=== PATIENT | male | born 1955 | race Hispanic/Latino ===

== ENCOUNTER → 2018-10-24 | Outpatient (CLI) | payer OTHER | END | disposition home or self-care (01) | LOC: SHCH 12:32 | PROVIDERS: ATTEND Internal Medicine Cardiovascular Disease | DX: I11.9 Hypertensive heart disease without heart failure (principal); I35.8 Other nonrheumatic aortic valve disorders | CPT/HCPCS: 93306 ==

== ENCOUNTER → 2019-01-28 | Outpatient (CLI) | payer OTHER ==
[~2019-01-28] MED LIST: ASPI-1181 PO; ATOR10TA69 PO; FURO20TA4 PO; SPIR25TA6 PO; TRAM50TA4 PO; VITAMIN B1 PO
[2019-01-28 17:38] LABS: AMYLASE,BODY FLUID 32 U/L
[2019-01-28 18:20] LABS: SPECIMENTYPE,BODY FLUID PLEURAL
[2019-01-28 18:21] LABS: APPEARANCE BODY FLUID SLIGHTLY CLOUDY (CLEAR); COLOR,BODY FLUID YELLOW (LT YELLOW); TOTAL VOLUME,BODY FLUID 1000 mL
[2019-01-28 18:22] LABS: BODY FLUID WBC 21 /cu. mm.
[2019-01-28 18:23] LABS: BODY FLUID RBC 585 /cu. mm.
[2019-01-28 19:39] LABS: BF LYMPHOCYTE 69 %; BF MONOCYTE 9 %
== END | disposition home or self-care (01) ==
LOC: LAB 15:14
PROVIDERS: ATTEND Internal Medicine Critical Care Medicine
DX: J90 Pleural effusion, not elsewhere classified (principal)
CPT/HCPCS: 82150; 82945; 83615; 84157; 87071; 87116; 87205; 87206; 89051

== ENCOUNTER 2019-03-03 08:29 | Day surgery (SDC) | payer OTHER ==
--- NOTE | 2019-03-03 08:50 | NUR ---
PT CAME C/O OF LEAKAGE TO THE END OF THE TUBE/CAP. SUSHMA BOSWELL FROM [employer] CAME TO EVALUATE THE SITE, CONFIRMED THE LEAKAGE WAS COMING FORM THE CAP AND NO THE SITE.
[2019-03-03 08:57] LABS: BASOPHILS % (AUTO) 1.3 % (0.0-5.0); EOSINOPHILS % (AUTO) 3.2 % (0.0-8.0); HEMATOCRIT 42.6 % (42-54); LYMPHOCYTES % (AUTO) 21.4 % (21.0-51.0); MEAN CORPUSCULAR HEMOGLOBIN 34.5 pg (27.0-33.0); MEAN CORPUSCULAR HGB CONC 34.3 g/dL (32.0-36.0); MEAN CORPUSCULAR VOLUME 100.7 fL (79-99); MONOCYTES % (AUTO) 8.1 % (3.0-13.0); PLATELET COUNT (AUTO) 318 K/uL (130-400); RED BLOOD CELL COUNT(AUTO) 4.23 MIL/uL (4.50-6.20); RED CELL DISTRIBUTION WIDTH 14.9 % (11.0-15.5); WHITE BLOOD COUNT (AUTO) 5.5 K/uL (4.8-10.8)
--- NOTE | 2019-03-03 09:10 | NUR ---
SUSHMA BOSWELL FROM [employer] CAME BACK REPLACE THE CAP, NO LEAKAGE WAS NOTICE. MIRTHA RN STATE WAS ABLE TO D/C PT.
[2019-03-03 09:23] LABS: INR 1.03 (0.85-1.15); PARTIAL THROMBOPLASTIN TIME 26.7 SEC (26.3-35.5); PROTHROMBIN TIME 10.8 SEC (9.6-11.6)
--- NOTE | 2019-03-03 09:52 | NUR ---
Rt pleural catheter assessed for leaking. IR Dr Mejía notified. Existing leaking hub replaced with new hub. No further leaking. Report given to primary nurse Azeb BOSWELL
--- NOTE | 2019-03-03 10:10 | NUR ---
PT D/C NO COMPLICATION VIA WHEELCHAIR WITH SPOUSE. D/C INSTRUCTION GIVEN TO PT.
[2019-03-17] MEDS ORDERED: VITA1CAP PO (10:47)
[2019-03-17] MEDS ORDERED: MIDO10TA PO (10:47)
[2019-03-17] MEDS ORDERED: FURO20TA4 PO (10:47)
[2019-03-17] MEDS ORDERED: FLUT1AER IH (10:47)
[2019-03-17] MEDS ORDERED: CEFU250T87 PO (10:47)
== END 2019-03-03 10:10 | disposition home or self-care (01) ==
LOC: CLH 08:29 → DAH 08:29 → CLH 10:10
PROVIDERS: ATTEND Thoracic Surgery (Cardiothoracic Vascular Surgery)
DX: T81.9XXA Unspecified complication of procedure, initial encounter (principal); I10 Essential (primary) hypertension; E78.5 Hyperlipidemia, unspecified; F10.21 Alcohol dependence, in remission; I42.8 Other cardiomyopathies; Z79.82 Long term (current) use of aspirin; Z79.899 Other long term (current) drug therapy; Z98.890 Other specified postprocedural states; Z87.891 Personal history of nicotine dependence
CPT/HCPCS: 36415; 85025; 85610; 85730; A4663; A7048

== ENCOUNTER → 2019-03-17 | Outpatient (CLI) | payer OTHER ==
[~2019-03-17] VITALS: Ht 166.4 cm; Wt 59.5 kg
[~2019-03-17] MED LIST changes: +CEFU250T87 PO; +FLUT1AER IH; +MIDO10TA PO; +SODIUM CHLORIDE 0.9% 1000ML 1,000 ML IV SCH; +VITA1CAP PO
[2019-03-17 09:45] LABS: BASOPHILS % (AUTO) 0.9 % (0.0-5.0); EOSINOPHILS % (AUTO) 3.5 % (0.0-8.0); HEMATOCRIT 40.9 % (42-54); LYMPHOCYTES % (AUTO) 16.1 % (21.0-51.0); MEAN CORPUSCULAR HEMOGLOBIN 34.1 pg (27.0-33.0); MEAN CORPUSCULAR HGB CONC 33.9 g/dL (32.0-36.0); MEAN CORPUSCULAR VOLUME 100.6 fL (79-99); MONOCYTES % (AUTO) 7.7 % (3.0-13.0); NEUTROPHILS % (AUTO) 71.8 % (40.0-77.0); NUCLEATED RED BLOOD CELLS 0.2 % (0.0-0.19); PLATELET COUNT (AUTO) 318 K/uL (130-400); RED BLOOD CELL COUNT(AUTO) 4.06 MIL/uL (4.50-6.20); RED CELL DISTRIBUTION WIDTH 14.5 % (11.0-15.5); WHITE BLOOD COUNT (AUTO) 5.8 K/uL (4.8-10.8)
[2019-03-17 09:52] LABS: CREATININE 0.8 mg/dL (0.5-1.5); POTASSIUM 4.4 mmol/L (3.5-5.1)
[2019-03-17 10:02] VITALS: BP 79/62
[2019-03-17 10:04] VITALS: BP 88/64
[2019-03-17 10:15] LABS: INR 1.09 (0.85-1.15); PARTIAL THROMBOPLASTIN TIME 27.8 SEC (26.3-35.5); PROTHROMBIN TIME 11.4 SEC (9.6-11.6)
--- NOTE | 2019-03-17 10:21 | NUR ---
SAW MD CHILD FOR COUGH, GOT ANTIBIOTICS.
[2019-03-17 10:25] LABS: APPEARANCE,URINE Clear (CLEAR); BILIRUBIN,URINE Small (NEGATIVE); COLOR,URINE Dark Yellow (YELLOW); GLUCOSE, URINE (UA) Negative (NEGATIVE); KETONES,URINE Trace mg/dL (NEGATIVE); LEUKOCYTE ESTERASE ,URINE Trace (NEGATIVE); NITRATE,URINE Negative (NEGATIVE); OCCULT BLOOD,URINE Negative (NEGATIVE); PROTEIN,URINE POS 2+ mg/dL (NEGATIVE)
[2019-03-17 10:34] LABS: BACTERIA,URINE Rare /HPF (None Seen); RBC,URINE 0-1 /HPF (0-1); SQUAMOUS EPITHELIAL CELL,UR Rare /HPF (0-2); WBC,URINE 0-1 /HPF (0-1)
--- NOTE | 2019-03-19 11:19 | NUR ---
PROCEDURE RESCHEDULED CALLED OFFICE FOR CLARIFICATION, SPOKE TO NETTIE. PER NETTIE, PT WILL BE RESCHEDULED FOR 03/27/19. ALSO CALLED ROSITA BOWDEN AND REPORTED CHEST X RAY RESULT. PER RAMIRO, HE HAD ALREADY SEEN PT'S CHEST X RAY RESULT, NO ORDERS GIVEN, CONFIRMED PT IS RESCHEDULED FOR 03/27/19, NO NEED TO REDRAW LABS, NO NEED TO RETAKE CXR.
== END ==
LOC: DAH 10:00 → EDSTATUS 03-19 08:00
PROVIDERS: ATTEND Internal Medicine Cardiovascular Disease
DX: Z01.818 Encounter for other preprocedural examination (principal); I42.0 Dilated cardiomyopathy; I25.2 Old myocardial infarction; J90 Pleural effusion, not elsewhere classified; Z79.01 Long term (current) use of anticoagulants
CPT/HCPCS: 36415; 71045; 80048; 81001; 85025; 85610; 85730; 93005

== ENCOUNTER → 2019-04-24 | Outpatient (CLI) | payer OTHER ==
[~2019-04-24] MED LIST changes: +ALBU8.5H8 IH; +BEDOYECTA PO; +MIDO5TAB4 PO; -SODIUM CHLORIDE 0.9% 1000ML 1,000 ML IV SCH
[2019-04-24 22:14] LABS: ALBUMIN 2.8 g/dL (3.5-5.0); BILIRUBIN,DIRECT 0.3 mg/dL (0.0-0.3); BILIRUBIN,TOTAL 0.9 mg/dL (0.2-1.0); TOTAL PROTEIN, SERUM 7.3 g/dL (6.0-8.3)
== END | disposition home or self-care (01) ==
LOC: LAB 13:19
PROVIDERS: ATTEND Internal Medicine Critical Care Medicine
DX: J90 Pleural effusion, not elsewhere classified (principal)
CPT/HCPCS: 36415; 80076

== ENCOUNTER → 2019-05-19 | Outpatient (CLI) | payer OTHER ==
[~2019-05-19] MED LIST changes: -CEFU250T87 PO; -MIDO10TA PO; -TRAM50TA4 PO; -VITA1CAP PO
[2019-05-19 14:44] LABS: ALBUMIN 2.6 g/dL (3.5-5.0); BILIRUBIN,DIRECT 0.4 mg/dL (0.0-0.3); TOTAL PROTEIN, SERUM 6.8 g/dL (6.0-8.3)
== END | disposition home or self-care (01) ==
LOC: LAB 13:58
PROVIDERS: ATTEND Internal Medicine Critical Care Medicine
DX: J90 Pleural effusion, not elsewhere classified (principal)
CPT/HCPCS: 36415; 80076